=== PATIENT | male | born 1955 | race Caucasian/White ===

== ENCOUNTER 2020-07-08 08:05 | Day surgery (SDC) | payer OTHER | END 2020-07-08 15:15 | disposition home or self-care (01) | LOC: AMB-ENDOS 08:05 | PROVIDERS: ATTEND Colon & Rectal Surgery | DX: D12.8 Benign neoplasm of rectum (principal); K64.2 Third degree hemorrhoids; K44.9 Diaphragmatic hernia without obstruction or gangrene; Z20.822 Contact with and (suspected) exposure to COVID-19 ==